=== PATIENT | male | born 1975 | race Caucasian/White ===

== ENCOUNTER → 2016-05-29 | Outpatient (CLI) | payer OTHER ==
[2016-05-29 14:36] LABS: ALBUMIN 4.2 GM/DL (3.2-5.2); ALBUMIN/GLOBULIN RATIO 1.27 (1.00-1.93); ALKALINE PHOSPHATASE 136 U/L (45-117); ALT/SGPT 389 U/L (12-78); AMYLASE 67 U/L (25-115); ANION GAP 7 MEQ/L (8-16); AST/SGOT 277 U/L (15-37); BILIRUBIN,TOTAL 3.8 MG/DL (0.2-1.0); BLOOD UREA NITROGEN 12 MG/DL (7-18); CALCIUM LEVEL 10.5 MG/DL (8.5-10.1); CARBON DIOXIDE LEVEL 31 MEQ/L (21-32); CHLORIDE LEVEL 102 MEQ/L (98-107); CREATININE FOR GFR 0.96 MG/DL (0.70-1.30); GLOMERULAR FILTRATION RATE > 60.0 (>60); GLUCOSE, FASTING 113 MG/DL (70-105); POTASSIUM SERUM 3.8 MEQ/L (3.5-5.1); SODIUM LEVEL 140 MEQ/L (136-145); TOTAL PROTEIN 7.5 GM/DL (6.4-8.2)
[2016-05-29 14:46] LABS: BASO % 0.2 % (0.0-1.0); EOS # 0.1 K/mm3 (0.0-0.50); EOS % 1.6 % (0.0-3.0); LARGE UNSTAINED CELL # 0.1 K/mm3 (0.0-0.4); LARGE UNSTAINED CELL % 1.4 % (0.0-4.0); LYMPH # 0.9 K/mm3 (1.5-4.5); LYMPH % 18.6 % (24.0-44.0); MEAN CORPUSCULAR HEMOGLOBIN 31.2 pg (27.0-33.0); MEAN CORPUSCULAR HGB CONC 34.8 g/dl (32.0-36.5); MEAN CORPUSCULAR VOLUME 89.9 fl (80.0-96.0); MONO # 0.3 K/mm3 (0.0-0.8); MONO % 6.7 % (0.0-5.0); NEUTROPHILS # 3.2 K/mm3 (1.8-7.7); NEUTROPHILS % 71.5 % (36.0-66.0); PLATELET COUNT, AUTOMATED 216 k/mm3 (150-450); RED CELL DISTRIBUTION WIDTH 12.2 % (11.5-14.5); WHITE BLOOD COUNT 4.4 K/mm3 (4.0-10.0)
[2016-05-30 10:11] LABS: HEPATITIS B SURFACE ANTIBODY NEGATIVE (POSITIVE)
== END ==
LOC: M LAB 13:23
PROVIDERS: ATTEND Physician Assistant
DX: R10.10 Upper abdominal pain, unspecified (principal); E83.52 Hypercalcemia; R94.5 Abnormal results of liver function studies

== ENCOUNTER → 2016-05-30 | Outpatient (CLI) | payer OTHER ==
[~2016-05-30] MED LIST: GASTROGRAFIN SOLUTION 30ML (Q9963) As Ordered ONE; ISOVUE-370 76% 100ML VIAL (Q9967) As Ordered ONE
--- NOTE | 2016-05-30 13:08 | REP ---
CT ABDOMEN AND PELVIS WITH CONTRAST: 05/30/2016. Clinical history: Upper abdominal pain. Comparison: KUB 07/26/2003. Technique: Oral Gastrografin mixture 10 ml in 290 ml of flavored water for two doses per our bowel contrast protocol with scanning through the abdomen followed by bolus of 100 ml Isovue 370, scanning through the abdomen and pelvis and both coronal and sagittal reconstructions provided. Findings:CT abdomen: Lung bases are clear. Heart is not enlarged. There is no pericardial thickening or effusion. No definite hiatal hernia. Liver and spleen are not enlarged. There is no focal hepatic or splenic mass, biliary dilatation or ascites. There is a 5 mm calcification in the dependent portion of the gallbladder. Gallbladder is not well distended. No residual food in the stomach. Pancreas shows no mass, ductal dilatation or inflammatory changes. There is calcification in the posterior inferior aspect of the pancreatic head. This could be in the pancreatic tissue or duct. The sagittal images suggest it may be in a duct on image 49. There is no ductal dilatation within the pancreatic head or elsewhere in the pancreas. No peripancreatic inflammatory change, adenopathy or fluid collection. Adrenal glands are normal. Kidneys show function without obstruction or mass. There is a capsular calcification posteriorly in the interpolar region on the left. No stones in the collecting system or pyramids. There is no hydronephrosis, hydroureter, cyst, solid mass or perinephric edema. The ureters show normal course to the bladder without dilatation or stone. Small bowel loops are contrast or fluid-filled. There are a few loops in the left upper quadrant with thickened edematous wall suggesting some gastroenteritis. No free air or ascites. Bone windows show no acute bony abnormality in the thoracic or lumbar levels visible. Visualized ribs are intact. Minor degenerative changes lower lumbar spine. 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 No other bony findings. The distal left colon, sigmoid and rectum are unremarkable. Small bowel loops without dilatation. There are no inflammatory changes about the cecum and the appendix is seen and grossly normal. Bladder without wall thickening, mass or stone, hernia or pathologic inguinal adenopathy. There are a few pelvic calcifications in the prostate noted, a common benign finding. Impression: 1. There is a 5 mm layered calcification posteriorly in the gallbladder and a small calcification in the pancreatic head which may be in a duct. Right upper quadrant ultrasound is suggested. MRCP may also be needed depending on that study. 2. Some left upper quadrant bowel loops with thickened wall that may reflect some gastroenteritis. There is no other significant finding. Signed by Golden Alberto MD 05/30/2016 03:03 P
--- NOTE | 2016-05-30 16:53 | REP ---
RIGHT UPPER QUADRANT ULTRASOUND: Real-time sonographic evaluation of the right upper quadrant performed. The gallbladder demonstrates an echogenic focus 5 mm in diameter in the anterior gallbladder wall, possibly representing calcification or focus of cholesterol crystals. No definite gallstones are seen in the lumen of the gallbladder. There is no gallbladder wall thickening. There is no free fluid. There is no intrahepatic or extrahepatic biliary dilatation, the common bile duct measuring 5 mm in diameter. Distal common bile duct could not be visualized. Liver and pancreas are homogeneous and grossly unremarkable. The right kidney demonstrates no hydronephrosis with normal size 11 cm in length. IMPRESSION: Echogenic focus in the anterior gallbladder wall represents either a calcification or cholesterol crystals in the gallbladder wall. No intraluminal gallstones or biliary dilatation. Distal common bile duct could not be visualized and therefore the tiny calcification in the region of the pancreatic head could not be evaluated. Further evaluation could be made with MRCP. Again, there is no biliary dilatation. Signed by Andrew Ann MD 05/30/2016 04:56 P
== END ==
LOC: M RAD 08:44
PROVIDERS: ATTEND Physician Assistant
DX: R93.5 Abnormal findings on diagnostic imaging of other abdominal regions, including retroperitoneum (principal); R10.10 Upper abdominal pain, unspecified
CPT/HCPCS: 74178; 76705; 87338; Q9963; Q9967

== ENCOUNTER 2020-10-31 08:40 | Emergency (ER) | payer OTHER ==
[~2020-10-31] VITALS: Ht 182.9 cm; Wt 92.4 kg
[2020-10-31] MEDS ORDERED: KETOROLAC 30 MG/ML 1ML VIAL IV ONE (09:15)
--- NOTE | 2020-10-31 10:17 | REP ---
INDICATION: right renal colic COMPARISON: 05/30/2016 TECHNIQUE: Axial noncontrast images from the lung bases to the pubic symphysis with coronal and sagittal reformations. This CT examination was performed using the following dose reduction techniques: Automated exposure control, adjustment of mA and/or kv according to the patient's size, and use of iterative reconstruction technique. FINDINGS: Mild right-sided hydroureteronephrosis with Belinda ureteral stranding secondary to a 3 mm calculus which appears to be at the ureteropelvic junction/bladder trigone. Correlation with physical examination is recommended as stone may have recently passed. The bilateral kidneys/urinary tract system is otherwise unremarkable. Punctate 1 mm nonobstructing left renal calculi cannot be excluded. Liver, spleen, pancreas, gallbladder, bilateral adrenal glands are normal for noncontrast evaluation. The enteric system is unremarkable. Prostate gland is moderately enlarged with mild mass effect on the base of the bladder. No ascites. No free air. No adenopathy. Abdominal aorta without aneurysm. Musculoskeletal structures demonstrate age-related changes. IMPRESSION: Acute mild right-sided obstructive uropathy with 3 mm calculus at the ureteropelvic junction/bladder trigone. Correlation is recommended as stone may have recently passed or is in transition into the bladder. <Electronically signed by Loc Dunn > 10/31/20 [id number]
[2020-10-31] MEDS ORDERED: ONDA4TAB6 PO (10:31)
[2020-10-31] MEDS ORDERED: FLOM0.4C39 PO (10:31)
[2020-10-31] MEDS ORDERED: HYDR-3713 PO (10:31)
[2020-10-31 10:39] VITALS: BP 142/81
== END 2020-10-31 10:55 | disposition home or self-care (01) ==
LOC: M ED 08:40
DX: N13.0 Hydronephrosis with ureteropelvic junction obstruction (principal)